=== PATIENT | male | born 1985 | race American Indian/Alaskan Native ===

== ENCOUNTER 2020-03-01 10:48 | Outpatient (CLI) | payer OTHER ==
--- NOTE | 2020-03-01 14:20 | XRay Report ---
RIGHT HAND HISTORY: COMPARISON: None. TECHNIQUE: 2 views of the right hand were obtained. FINDINGS: Bones: No fracture or dislocation. Joint spaces: Maintained. Soft tissues: No significant abnormality. Additional findings: None. IMPRESSION: 1. No significant abnormality. Signer Name: Codey Ang MD Signed: 03/01/2020 2:16 PM Workstation Name: [id number]
--- NOTE | 2020-03-01 14:21 | XRay Report ---
HISTORY:RIGHT THIGH PAIN COMPARISON: None. TECHNIQUE: AP lateral and obliques views were obtained FINDINGS: Bones: Intramedullary dakota in place with remodeling of the proximal femur Joint spaces: Maintained. Soft tissues: No significant abnormality. Additional findings: None. IMPRESSION: 1. No significant abnormality. Signer Name: Codey Ang MD Signed: 03/01/2020 2:16 PM Workstation Name: [id number]
--- NOTE | 2020-03-01 14:21 | XRay Report ---
CLINICAL DATA: BACK PAIN TECHNICAL DATA: AP and lateral views lumbar spine. FINDINGS: The bone mineralization is normal. Vertebral body heights are normal. Intervertebral disc spaces are well maintained. Pedicles and spinous processes are normal in alignment. SI joints and sacrum are nor mal. IMPRESSION: Normal examination lumbar spine. Signer Name: Codey Ang MD Signed: 03/01/2020 2:17 PM Workstation Name: [id number]
--- NOTE | 2020-03-01 14:23 | XRay Report ---
CLINICAL DATA: LEG PAIN TECHNICAL DATA: AP and lateral views were obtained of the tibia and fibula. FINDINGS: The soft tissues are normal. There is no acute fracture or dislocation. The visualized joint spaces are normal. IMPRESSION: No acute radiographic abnormality. Signer Name: Codey Ang MD Signed: 03/01/2020 2:18 PM Workstation Name: [id number]
== END 2020-03-01 10:49 | disposition home or self-care (01) ==
LOC: XRAY 10:48
PROVIDERS: ATTEND Internal Medicine
DX: M54.5 Low back pain (principal); M79.651 Pain in right thigh; M79.604 Pain in right leg; M79.641 Pain in right hand
CPT/HCPCS: 72100